=== PATIENT | male | born 1975 | race Caucasian/White ===

== ENCOUNTER 2022-01-30 19:05 | Emergency (ER) | payer BC, SELFPAY ==
--- NOTE | ~2022-01-30 | XR_ITS ---
EXAMINATION: XR SHOULDER, RIGHT CLINICAL INFORMATION: Shoulder injury COMPARISON: None TECHNIQUE: AP and scapular Y view of the right shoulder. FINDINGS: Anterior inferior displacement of the proximal humerus. Possible flattening of the posterior lateral head tuberosity junction suggestive of Hill-Sachs lesion. Surrounding bone and soft tissues unremarkable XR/XR shoulder RT min 2V IMPRESSION: Anterior inferior shoulder dislocation
--- NOTE | ~2022-01-30 | XR_ITS ---
EXAMINATION: XR shoulder RT min 2V CLINICAL INFORMATION: Reason for Exam post reduction COMPARISON: Shoulder radiographs 01/30/2022 TECHNIQUE: Two views of the shoulder XR/XR shoulder RT min 2V FINDINGS/IMPRESSION: * Interval reduction of the previously seen anterior shoulder dislocation now in improved alignment. Previously described flattening of the humeral head suggesting stable Hill-Sachs lesion was better appreciated on prior exam. * Mild degenerative changes of the acromioclavicular joint. * No soft tissue abnormality.
[2022-01-30 20:17] VITALS: BP 168/91; PULSE 100; RESP 22; TEMP 36.7; O2SAT 100; BMI 23.4
[2022-01-30] MEDS: Acetaminophen 325 MG TABLET 975 MG PO (20:25)
[2022-01-30 20:37] LABS: MANUAL DIFF FLAG NO
[2022-01-30 20:40] LABS: Basophils Absolute Auto 0.1 X10*3/uL (0.0-0.2); Basophils Percent Auto 0.4 % (0-2); Eosinophils Absolute Auto 0.1 X10*3/uL (0.0-0.4); Eosinophils Percent Auto 0.4 % (0-4); Hematocrit 43.1 % (42.0-52.0); Hemoglobin 14.8 g/dl (14.0-18.0); Imm Gran Abs Auto 0.08 X10*3/uL (0.00-0.03); Imm Gran Pct Auto 0.5 % (0.0-0.4); Lymphocytes Absolute Auto 1.7 X10*3/uL (1.2-4.9); Lymphocytes Percent Auto 10.4 % (20-40); Mean Corpuscular HGB Conc 34.3 g/dl (31.0-36.0); Mean Corpuscular Hemoglobin 31.2 pg (27.0-33.0); Mean Corpuscular Volume 90.7 fL (80.0-98.0); Mean Platelet Volume 9.1 fL (9.4-12.4); Monocytes Absolute Auto 0.9 X10*3/uL (0.1-1.2); Monocytes Percent Auto 5.1 % (2-11); Neutrophils Absolute Auto 13.9 x10*3/uL (2.0-8.3); Neutrophils Percent Auto 83.2 % (45-73); Platelet Count 305 X10*3/uL (160-400); Red Blood Count 4.75 X10*6/uL (4.60-5.80); Red Cell Distribution Width 13.8 % (11.0-16.0); White Blood Count 16.7 X10*3/uL (4.8-10.8)
[2022-01-30 20:52] LABS: Ethanol < 10 mg/dL
[2022-01-30 20:54] LABS: Alanine Aminotransferase 23 U/L (0-40); Albumin Level 4.7 g/dL (3.5-5.0); Alkaline Phosphatase 44 U/L (39-117); Anion Gap 15 (12-20); Aspartate Amino Transferase 31 U/L (5-37); Bilirubin Total 0.3 mg/dL (0.0-1.0); Blood Urea Nitrogen 11 mg/dL (9-16); Calcium 9.8 mg/dL (8.4-10.2); Carbon Dioxide 27 mmol/L (22-29); Chloride 105 mmol/L (96-108); Creatinine Clr Calc Pharmacy 98.2; Estimated Glomerular Filt Rate > 60; Glucose Random 129 mg/dL (60-115); Potassium 3.9 mmol/L (3.3-5.1); Sodium 143 mmol/L (135-145); Total Protein 7.3 g/dL (6.5-8.0)
[2022-01-30 20:55] LABS: COVID-19 Test Negative (Negative)
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
[2022-01-30 21:43] VITALS: BP 160/90; PULSE 50; RESP 14; TEMP 36.7; O2SAT 100
[2022-01-30 21:52] VITALS: BP 160/90; PULSE 50; RESP 14; TEMP 36.7
[2022-01-30 22:00] VITALS: RESP 14
--- NOTE | 2022-01-30 22:02 | PC.NURSE ---
Pt reports slight numbness in his right hand. Cap refill <3 Seconds. Pt able to move fingers on affected sides.
[2022-01-30 22:07] LABS: Appearance Urine CLEAR; Color Urine YELLOW; Glucose Urine UA NEG (NEG); Leukocyte Esterase Urine NEG (NEG); Nitrite Urine NEG (NEG); Specific Gravity - Urine >= 1.030 (1.005-1.025); UACC Culture Trigger NO; Urine Blood NEG (NEG); Urine Ketones NEG (NEG); Urine Protein 2+ MG/DL (NEG-TRACE)
[2022-01-30 22:23] LABS: Amphetamine Screen Urine Not Detected (Not Detect); Barbiturates, Urine Not Detected (Not Detect); Benzodiazepines Screen Urine Not Detected (Not Detect); Cannabinoid Screen Urine POSITIVE (Not Detect); Cocaine Screen Urine Not Detected (Not Detect); Fentanyl, urine Not Detected (Not Detect); Opiate Screen Urine Not Detected (Not Detect); Phencyclidine Screen Urine Not Detected (Not Detect)
[2022-01-30 22:25] LABS: Hyaline Casts Urine 0-2 /LPF; Mucus Urine TRACE /LPF; RBC Urine 0-2 /HPF (0); Squamous Epithelial Cell Urine TRACE /LPF; WBC Urine 0-2 /HPF (0-4)
--- NOTE | 2022-01-31 11:07 | MHC.CARE ---
Pt discharged prior to care team consult
== END 2022-01-30 22:08 | disposition home or self-care (01) ==
PROVIDERS: Emergency Provider Emergency Medicine Emergency Medical Services
DX: S43.014A Anterior dislocation of right humerus, initial encounter (principal); S43.034A Inferior dislocation of right humerus, initial encounter; Y04.0XXA Assault by unarmed brawl or fight, initial encounter; R45.1 Restlessness and agitation; F41.9 Anxiety disorder, unspecified; F32.A Depression, unspecified; Z20.822 Contact with and (suspected) exposure to COVID-19; Y93.9 Activity, unspecified; Y92.9 Unspecified place or not applicable; Y99.9 Unspecified external cause status; Z79.899 Other long term (current) drug therapy
CPT/HCPCS: 23650; 73030; 80053; 80307; 81001; 82077; 85025; 87635; 99284

== ENCOUNTER 2022-02-07 17:23 | Emergency (ER) | payer BC, SELFPAY ==
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
[2022-02-07 17:37] VITALS: BP 122/83; BP 151/91; PULSE 87; PULSE 88; TEMP 36.9; O2SAT 100; O2SAT 98; BMI 25.0
[2022-02-07 18:27] LABS: Appearance Urine CLEAR; Color Urine YELLOW; Glucose Urine UA NEG (NEG); Leukocyte Esterase Urine NEG (NEG); Nitrite Urine NEG (NEG); Specific Gravity - Urine <= 1.005 (1.005-1.025); Urine Blood NEG (NEG); Urine Ketones NEG (NEG); Urine Protein NEG (NEG-TRACE)
[2022-02-07 18:45] LABS: Amphetamine Screen Urine Not Detected (Not Detect); Barbiturates, Urine Not Detected (Not Detect); Benzodiazepines Screen Urine Not Detected (Not Detect); Cannabinoid Screen Urine POSITIVE (Not Detect); Cocaine Screen Urine Not Detected (Not Detect); Fentanyl, urine Not Detected (Not Detect); Opiate Screen Urine Not Detected (Not Detect); Phencyclidine Screen Urine Not Detected (Not Detect)
--- NOTE | 2022-02-07 18:50 | PHA.MEDREC ---
Pharmacy Consult ? Medication Reconciliation Pharmacy has completed the medication reconciliation.
[2022-02-07 18:58] LABS: COVID-19 Test Negative (Negative); IDNOW Serial# 16C4AD1C
[2022-02-07 19:12] LABS: MANUAL DIFF FLAG NO
[2022-02-07 19:14] LABS: Basophils Absolute Auto 0.1 X10*3/uL (0.0-0.2); Basophils Percent Auto 0.6 % (0-2); Eosinophils Absolute Auto 0.2 X10*3/uL (0.0-0.4); Eosinophils Percent Auto 1.6 % (0-4); Hematocrit 40.2 % (42.0-52.0); Hemoglobin 13.8 g/dl (14.0-18.0); Imm Gran Abs Auto 0.02 X10*3/uL (0.00-0.03); Imm Gran Pct Auto 0.2 % (0.0-0.4); Lymphocytes Percent Auto 18.9 % (20-40); Mean Corpuscular HGB Conc 34.3 g/dl (31.0-36.0); Mean Corpuscular Hemoglobin 30.8 pg (27.0-33.0); Mean Corpuscular Volume 89.7 fL (80.0-98.0); Mean Platelet Volume 9.2 fL (9.4-12.4); Monocytes Absolute Auto 0.7 X10*3/uL (0.1-1.2); Monocytes Percent Auto 6.2 % (2-11); Neutrophils Absolute Auto 7.8 x10*3/uL (2.0-8.3); Neutrophils Percent Auto 72.5 % (45-73); Platelet Count 235 X10*3/uL (160-400); Red Blood Count 4.48 X10*6/uL (4.60-5.80); Red Cell Distribution Width 13.3 % (11.0-16.0); White Blood Count 10.7 X10*3/uL (4.8-10.8)
[2022-02-07 19:27] LABS: Ethanol < 10 mg/dL
[2022-02-07 19:29] LABS: Anion Gap 12 (12-20); Blood Urea Nitrogen 8 mg/dL (9-16); Calcium 9.2 mg/dL (8.4-10.2); Carbon Dioxide 27 mmol/L (22-29); Chloride 106 mmol/L (96-108); Creatinine Clr Calc Pharmacy 104.2; Estimated Glomerular Filt Rate > 60; Glucose Random 81 mg/dL (60-115); Potassium 3.9 mmol/L (3.3-5.1); Sodium 141 mmol/L (135-145)
--- NOTE | 2022-02-07 19:30 | MHC.CARE ---
Pt was seen in [facility] in the community for agitation and verbal aggression toward family, suicidal statements, and erratic behavior. Pt lives in [place] and has been visiting family in the area with his . He was sent to the hospital on a Section 12a and is an RASHI follow up for further evaluation in the morning.
[2022-02-08 05:19] VITALS: BP 124/82; PULSE 77; RESP 16; TEMP 37; O2SAT 100
--- NOTE | 2022-02-08 06:07 | PC.NURSE ---
Patient slept through the night, no distress observed/reported, med rec completed/pending provider's approval, behavior non concerning, patient was seen by [facility] pending disposition/RASHI f/u in the morning, VSS, will continue to monitor
[2022-02-08 07:35] VITALS: BP 137/91; PULSE 83; RESP 13; TEMP 36.3; O2SAT 98
--- NOTE | 2022-02-08 11:47 | PC.NURSE ---
pt continues to await [facility], [facility] has called and stated they plan to see pt this morning/afternoon. pt is becoming growingly inpatient, behaviors calm/non threatening.
== END 2022-02-08 14:56 | disposition home or self-care (01) ==
PROVIDERS: Physician Assistant; Emergency Provider Internal Medicine
DX: F33.1 Major depressive disorder, recurrent, moderate (principal); R45.851 Suicidal ideations; F41.1 Generalized anxiety disorder; F43.0 Acute stress reaction; F17.200 Nicotine dependence, unspecified, uncomplicated; Z20.822 Contact with and (suspected) exposure to COVID-19; Z71.6 Tobacco abuse counseling; Z79.899 Other long term (current) drug therapy
CPT/HCPCS: 36415; 80048; 80307; 81003; 82077; 85025; 87635; 99284